=== PATIENT | male | born 1965 ===

== ENCOUNTER 2016-08-13 09:29 | Emergency (ER) | payer OTHER ==
[2016-08-13 09:44] VITALS: O2SAT 96
--- NOTE | 2016-08-13 10:29 | C.PDOC ---
Time Seen by Provider: 08/13/16 10:20 Chief Complaint (Nursing): Abnormal Skin Integrity Past Medical History Vital Signs: Last Vital Signs Temp 97.8 F 08/13/16 09:41 Pulse 66 08/13/16 09:41 Resp 20 08/13/16 09:41 BP 127/85 08/13/16 09:41 Pulse Ox 96 08/13/16 09:41 - Social History Hx Alcohol Use: Yes Hx Substance Use: No - Immunization History Hx Tetanus Toxoid Vaccination: No Hx Influenza Vaccination: No ED Course And Treatment O2 Sat by Pulse Oximetry: 96 Disposition Counseled Patient/Family Regarding: Diagnosis, Need For Followup, Rx Given - Disposition Disposition: HOME/ ROUTINE Disposition Time: 10:29 Prescriptions: Prednisone 50 mg PO DAILY #5 tablet Witch Mami 472 ml TP BID #1 solution Instructions: Poison Kika (ED) Print Language: CROATIAN - POA Present On Arrival: None - Clinical Impression Clinical Impression: Allergic dermatitis due to poison kika
--- NOTE | 2016-08-13 10:30 | C.PDOC ---
History Of Present Illness 51-year-old male, presents to the emergency department with complaints of an itchy rash to bilateral arms, that started two days ago, after he was gardening. Patient denies any fevers, nausea/vomiting. States initially, rash to B/L arms, but noticed it on the abdomen this morning, resulting in him coming to the ED for evaluation. Time Seen by Provider: 08/13/16 10:20 Chief Complaint (Nursing): Abnormal Skin Integrity History Per: Patient History/Exam Limitations: no limitations Onset/Duration Of Symptoms: Days Current Symptoms Are (Timing): Still Present Past Medical History Reviewed: Historical Data, Nursing Documentation, Vital Signs Vital Signs: Last Vital Signs Temp 97.5 F L 08/13/16 10:34 Pulse 64 08/13/16 10:34 Resp 18 08/13/16 10:34 BP 128/89 08/13/16 10:34 Pulse Ox 96 08/13/16 10:43 Family History: States: No Known Family Hx - Social History Hx Alcohol Use: Yes Hx Substance Use: No - Immunization History Hx Tetanus Toxoid Vaccination: No Hx Influenza Vaccination: No Review Of Systems Constitutional: Negative for: Fever Gastrointestinal: Negative for: Nausea, Vomiting Skin: Positive for: Rash Physical Exam - Physical Exam Appears: Non-toxic, No Acute Distress Skin: Warm, Dry, Rash (linear erythematous excoriations and vesicles w/ serous discharge to B/L arms. three similar lesions to abdomen) Head: Atraumatic, Normacephalic Eye(s): bilateral: Normal Inspection Oral Mucosa: Moist Lips: Normal Appearing Neck: Normal ROM Chest: Symmetrical Extremity: Bilateral: Atraumatic, Normal ROM Neurological/Psych: Oriented x3, Normal Speech Gait: Steady ED Course And Treatment O2 Sat by Pulse Oximetry: 96 Medical Decision Making Medical Decision Making: Impression: 51 y/o M w/ rash consistent with poison kika dermatitis Plan: * Benadryl, Prednisone * Reassess and Disposition Progress: Patient will be discharged home w/ Prednisone for relief of symptoms. He was asked to f/u outpatient in 1-2 days. Disposition Counseled Patient/Family Regarding: Diagnosis, Need For Followup, Rx Given - Disposition Referrals: [facility] [Outside] [facility] [Outside] Disposition: HOME/ ROUTINE Disposition Time: 10:29 Condition: GOOD Additional Instructions: [facility] benadryl para cualquier picazn cada 4-6 horas [facility] diariamente prednisona Aplique la solucin para ayudar a secar la erupcin Prescriptions: Prednisone 50 mg PO DAILY #5 tablet Witch Mami 472 ml TP BID #1 solution Instructions: Poison Kika (ED) Print Language: LATVIAN - POA Present On Arrival: None - Clinical Impression Clinical Impression: Allergic dermatitis due to poison kika - Scribe Statement The provider has reviewed the documentation as recorded by the Radha Moses All medical record entries made by the Preetiibjorge were at my direction and personally dictated by me. I have reviewed the chart and agree that the record accurately reflects my personal performance of the history, physical exam, medical decision making, and the department course for this patient. I have also personally directed, reviewed, and agree with the discharge instructions and disposition.
[2016-08-13 10:35] VITALS: BP 128/89; PULSE 64; RESP 18; TEMP 97.5
== END 2016-08-13 11:15 | disposition home or self-care (01) ==
LOC: C.ER 09:29
DX: L23.7 Allergic contact dermatitis due to plants, except food (principal)

== ENCOUNTER 2016-08-17 07:13 | Emergency (ER) | payer OTHER ==
[2016-08-17 07:21] VITALS: BP 156/95; PULSE 71; RESP 17; TEMP 98.4; O2SAT 100
--- NOTE | 2016-08-17 08:04 | C.PDOC ---
History Of Present Illness 51 yr old male presents to the ER stating he was seen 5 days ago for contact dermatitis (poison kika) and was discharged with prednisone, however returns today stating the rash has worsened. States the rash is worse at night time and has not taking prednisone today since he was coming to the ED. Patient denies fever, chest pain, SOB, nausea, vomiting, headache, weakness or numbness. Time Seen by Provider: 08/17/16 07:22 Chief Complaint (Nursing): Abnormal Skin Integrity History Per: Patient History/Exam Limitations: no limitations Onset/Duration Of Symptoms: Days (5) Current Symptoms Are (Timing): Still Present Quality Of Symptoms: Itching Severity: Mild Recent travel outside of the [place]: No Past Medical History Reviewed: Historical Data, Nursing Documentation, Vital Signs Vital Signs: Last Vital Signs Temp 98.4 F 08/17/16 07:20 Pulse 71 08/17/16 07:20 Resp 17 08/17/16 07:20 BP 156/95 H 08/17/16 07:20 Pulse Ox 100 08/17/16 08:18 - Medical History PMH: No Chronic Diseases Surgical History: No Surg Hx Family History: States: No Known Family Hx - Social History Hx Alcohol Use: Yes Hx Substance Use: No - Immunization History Hx Tetanus Toxoid Vaccination: No Hx Influenza Vaccination: No Review Of Systems Except As Marked, All Systems Reviewed And Found Negative. Constitutional: Negative for: Fever Cardiovascular: Negative for: Chest Pain Respiratory: Negative for: Shortness of Breath Gastrointestinal: Negative for: Nausea, Vomiting Skin: Positive for: Rash (contact dermatitis (poison kika)) Neurological: Negative for: Weakness, Numbness, Headache Physical Exam - Physical Exam Appears: Well, Non-toxic, No Acute Distress Skin: Warm, Dry, Other ((+) Crusting. Erythema to bilateral arms and anterior chest. ) Head: Atraumatic, Normacephalic Eye(s): bilateral: Normal Inspection, PERRL, EOMI Oral Mucosa: Moist Tongue: Normal Appearing Lips: Normal Appearing Throat: Normal Chest: Symmetrical, No Tenderness Cardiovascular: Rhythm Regular, No Murmur Respiratory: Normal Breath Sounds, No Rales, No Rhonchi, No Wheezing Extremity: Normal ROM, No Swelling Neurological/Psych: Oriented x3, Normal Speech, Normal Motor Gait: Steady ED Course And Treatment O2 Sat by Pulse Oximetry: 100 Medical Decision Making Medical Decision Making: PLAN: * Benadryl PO * Prednisone PO Disposition - Disposition Referrals: [facility] [Outside] [facility] [Outside] [facility] [Outside] Disposition: HOME/ ROUTINE Disposition Time: 08:20 Condition: STABLE Prescriptions: Calamine/Zinc Oxide [Calamine Lotion] 120 ml EXT BID #1 bottle DiphenhydrAMINE [Benadryl] 25 mg PO Q8 PRN #20 cap PRN Reason: Itching / Pruritus predniSONE [Prednisone] 40 mg PO DAILY #4 tab Instructions: Contact Dermatitis (ED), Poison Kika (ED) - Clinical Impression Clinical Impression: Contact dermatitis, Allergic dermatitis due to poison kika - PA / [employer] / Resident Statement MD/DO has reviewed & agrees with the documentation as recorded. - Scribe Statement The provider has reviewed the documentation as recorded by the Scribe Teressa Candelario All medical record entries made by the Scribe were at my direction and personally dictated by me. I have reviewed the chart and agree that the record accurately reflects my personal performance of the history, physical exam, medical decision making, and the department course for this patient. I have also personally directed, reviewed, and agree with the discharge instructions and disposition.
--- NOTE | 2016-08-17 08:04 | C.PDOC ---
Time Seen by Provider: 08/17/16 07:22 Chief Complaint (Nursing): Abnormal Skin Integrity Past Medical History Vital Signs: Last Vital Signs Temp 98.4 F 08/17/16 07:20 Pulse 71 08/17/16 07:20 Resp 17 08/17/16 07:20 BP 156/95 H 08/17/16 07:20 Pulse Ox 100 08/17/16 07:20 - Social History Hx Alcohol Use: Yes Hx Substance Use: No - Immunization History Hx Tetanus Toxoid Vaccination: No Hx Influenza Vaccination: No ED Course And Treatment O2 Sat by Pulse Oximetry: 100
== END 2016-08-17 08:27 | disposition home or self-care (01) ==
LOC: C.ER 07:13
DX: L23.7 Allergic contact dermatitis due to plants, except food (principal)